=== PATIENT | female | born 1945 | race Caucasian/White ===

== ENCOUNTER 2020-06-05 16:29 | Emergency (ER) | payer OTHER, BC | END 2020-06-05 17:48 | disposition home or self-care (01) | LOC: JVIRT 16:29 | DX: U07.1 COVID-19 (principal) | CPT/HCPCS: C9803; G2012-GT; Q3014-GT; U0003 ==

== ENCOUNTER 2020-07-03 14:22 | Emergency (ER) | payer OTHER, BC | END 2020-07-03 17:05 | disposition left against medical advice (07) | LOC: JVIRT 14:22 | DX: Z11.52 Encounter for screening for COVID-19 (principal) | CPT/HCPCS: G2012-GT ==

== ENCOUNTER 2023-06-24 04:25 | Day surgery (SDC) | payer OTHER, BC ==
[2023-06-21 14:21] VITALS: BMI 29.4
[2023-06-24 14:00] VITALS: TEMP 98.7
[2023-06-24 16:02] VITALS: RESP 20
[2023-06-24 16:22] VITALS: BP 156/78; PULSE 92
== END 2023-06-24 15:00 | disposition home or self-care (01) ==
LOC: JASU-ENDO 04:25
PROVIDERS: ATTEND Internal Medicine Gastroenterology
PROC: 0DB48ZX Excision of Esophagogastric Junction, Via Natural or Artificial Opening Endoscopic, Diagnostic (ICD-10-PCS; 2023-06-24)
PROC: 0DB78ZX Excision of Stomach, Pylorus, Via Natural or Artificial Opening Endoscopic, Diagnostic (ICD-10-PCS; 2023-06-24)
PROC: 0DB68ZX Excision of Stomach, Via Natural or Artificial Opening Endoscopic, Diagnostic (ICD-10-PCS; 2023-06-24)
PROC: 0DJD8ZZ Inspection of Lower Intestinal Tract, Via Natural or Artificial Opening Endoscopic (ICD-10-PCS; principal; 2023-06-24 12:30)
DX: Z12.11 Encounter for screening for malignant neoplasm of colon (principal); K44.9 Diaphragmatic hernia without obstruction or gangrene; K29.70 Gastritis, unspecified, without bleeding; K31.7 Polyp of stomach and duodenum; K21.00 Gastro-esophageal reflux disease with esophagitis, without bleeding; D50.9 Iron deficiency anemia, unspecified
CPT/HCPCS: 43239; G0121; 88305-TC; 88342-TC